=== PATIENT | female | born 1985 | race Asian ===

== ENCOUNTER 2019-01-28 10:01 | Day surgery (SDC) | payer OTHER ==
[~2019-01-28] VITALS: Ht 157.5 cm; Wt 57.7 kg
[2019-01-28] MEDS ORDERED: FENTANYL PF 100 MCG/2ML ONE (10:22)
[2019-01-28] MEDS ORDERED: MIDAZOLAM 1 MG/ML, 2ML ONE (10:22)
[2019-01-28] MEDS ORDERED: LACTATED RINGERS 1,000 ML IV SCH (10:45)
[2019-01-28] MEDS ORDERED: MULT-658 PO (10:52)
[2019-01-28 10:56] VITALS: BP 96/63
[2019-01-28] MEDS ORDERED: PLEASE ENTER HEIGHT AND WEIGHT MC SCH (11:00)
[2019-01-28] MEDS ORDERED: OXYTOCIN 10 UNITS/ML, 1ML ONE (11:39)
[2019-01-28] MEDS ORDERED: MISOPROSTOL 200 MCG TABLET ONE (11:39)
[2019-01-28] MEDS ORDERED: SILVER NITRATE STICK TP ONE (11:40)
[2019-01-28] MEDS ORDERED: METHYLERGONOVINE 0.2 MG/ML IM ONE (11:40)
[2019-01-28] MEDS ORDERED: EPHEDRINE 50 MG/ML, 1ML ONE (11:54)
[2019-01-28] MEDS ORDERED: PROMETHAZINE 25 MG/ML, 1ML ONE (11:54)
[2019-01-28] MEDS ORDERED: DOXYCYCLINE 100 MG VIAL ONE (11:58)
[2019-01-28] MEDS ORDERED: CEFAZOLIN 1,000 MG ONE (12:13)
[2019-01-28] MEDS ORDERED: DEXAMETHASONE 4 MG/ML, 1ML ONE (12:13)
[2019-01-28] MEDS ORDERED: KETOROLAC 30 MG/1 ML ONE (12:13)
[2019-01-28] MEDS ORDERED: ONDANSETRON 2MG/ML, 2ML ONE (12:13)
[2019-01-28] MEDS ORDERED: PROPOFOL 10 MG/ML, 20ML ONE (12:13)
[2019-01-28] MEDS ORDERED: LIDOCAINE-MPF 2% ,5ML ONE (12:13)
[2019-01-28] MEDS ORDERED: ONDANSETRON ODT 8 MG PO PRN (12:30)
[2019-01-28] MEDS ORDERED: DIAZEPAM 5 MG/ML, 2ML IVPush PRN (12:30)
[2019-01-28] MEDS ORDERED: FENTANYL PF 100 MCG/2ML IV PRN (12:30)
[2019-01-28] MEDS ORDERED: PROMETHAZINE 25 MG/ML, 1ML IV PRN (12:30)
[2019-01-28] MEDS ORDERED: OXYcodone 5 MG/5 ML ORAL.SOL UDC PO PRN (12:30)
[2019-01-28] MEDS ORDERED: HYDROmorphone 2 MG/ML, 1ML IVPush PRN (12:30)
[2019-01-28] MEDS ORDERED: ACETAMINOPHEN 325 MG TABLET PO PRN (12:30)
[2019-01-28] MEDS ORDERED: ONDANSETRON 2MG/ML, 2ML IV PRN (12:30)
== END 2019-01-28 14:50 | disposition home or self-care (01) ==
LOC: OUT 10:01
PROVIDERS: ATTEND Obstetrics & Gynecology
DX: O02.1 Missed abortion (principal); Z3A.08 8 weeks gestation of pregnancy; Z79.899 Other long term (current) drug therapy
CPT/HCPCS: 59820; 88305; J1100; J1885; J2210; J2250; J2405; J2550; J2704; J3010; J7120; J0690; J2590